=== PATIENT | female | born 1960 | race Caucasian/White ===

== ENCOUNTER 2018-06-02 08:10 | Emergency (ER) | payer OTHER ==
[~2018-06-02] VITALS: Ht 154.9 cm; Wt 63.5 kg
[~2018-06-02 08:10] MED LIST: BUPR100T13 PO; GABA800T2 PO; GEMF600T4 PO; HYDR1TAB GT; METF-440 PO; PARO40TA PO; SIMV20TA6 PO; TRAM50TA PO
--- NOTE | 2018-06-02 08:28 | NUR ---
58 Y/O FEMALE PLACED IN BED 12 C/O COUGH AND CONGESTION. HISTORY OF ASTHMA AND DIABETES.
[2018-06-02] MEDS ORDERED: IPRATROPIUM NEB FS 0.5 MG/2.5 ML AMPUL.NEB ONE (08:36)
[2018-06-02] MEDS ORDERED: ALBUTEROL FS 2.5 MG/3 ML VIAL.NEB ONE ×2 (08:36→09:54)
[2018-06-02] MEDS ORDERED: predniSONE 20 MG TABLET ONE ×2 (08:44→08:52)
--- NOTE | 2018-06-02 08:48 | NUR ---
BREATHING TREATMENT STARTED. PO PREDNISONE GIVEN.
[2018-06-02] MEDS ORDERED: IPRATROPIUM NEB FS 0.5 MG/2.5 ML AMPUL.NEB NEB ONE (09:00)
[2018-06-02] MEDS ORDERED: predniSONE 20 MG TABLET PO ONE (09:00)
[2018-06-02] MEDS ORDERED: ALBUTEROL FS 2.5 MG/3 ML VIAL.NEB NEB ONE (09:00)
[2018-06-02] MEDS ORDERED: IV NS 0.9% 1,000 ML BAG IV ONE (09:30)
--- NOTE | 2018-06-02 09:33 | NUR ---
22 IV H/L PLACED IN LEFT FOREARM. IVF RUNNING.
[2018-06-02] MEDS ORDERED: ALBUTEROL FS 2.5 MG/0.5 ML VIAL.NEB NEB ONE (10:00)
--- NOTE | 2018-06-02 10:05 | NUR ---
EKG AND CHEST X-RAY DONE
--- NOTE | 2018-06-02 10:05 | NUR ---
SECOND BREATHING TREATMENT.
--- NOTE | 2018-06-02 10:28 | NUR ---
AFTER LAST BREATHING TREATMENT, HEART RATE 137. AWARE.
--- NOTE | 2018-06-02 10:43 | NUR ---
LOOKING AT POSSIBLE ADMISSION OF PT. LUNG SOUNDS IMPROVING. PT MOVING MORE AIR.
[2018-06-02 13:00] VITALS: BP 147/70
--- NOTE | 2018-06-02 13:01 | NUR ---
PT RESTING COMFORTABLY. HEART RATE DECREASING.
--- NOTE | 2018-06-02 14:36 | NUR ---
ASTHMA MODERATED. ACI GIVEN WITH RX. DISCHARGED HOME TO FOLLOW UP WITH PMD.
== END 2018-06-02 14:38 | disposition home or self-care (01) ==
LOC: ER 08:14
DX: J45.901 Unspecified asthma with (acute) exacerbation (principal); E11.42 Type 2 diabetes mellitus with diabetic polyneuropathy; I10 Essential (primary) hypertension; J42 Unspecified chronic bronchitis; F32.9 Major depressive disorder, single episode, unspecified; Z87.442 Personal history of urinary calculi; Z86.718 Personal history of other venous thrombosis and embolism; Z98.890 Other specified postprocedural states
CPT/HCPCS: 71045; 93005; 94640 ×2; 99285; A4606; J7512; Z7610

== ENCOUNTER 2019-01-18 09:03 | Emergency (ER) | payer OTHER ==
[~2019-01-18] VITALS: Ht 157.5 cm; Wt 77.1 kg
[~2019-01-18 09:03] MED LIST changes: +GABA800T11 PO; -GABA800T2 PO; -GEMF600T4 PO; +GEMF600T5 PO
--- NOTE | 2019-01-18 09:03 | NUR ---
BIB SELF FOR C/O LEFT ANKLE INJURY YESTERDAY. PT STATED HAVING BALANCE ISSUES. TO ER BED 12, HOOKED TO MONITOR, CHANGED TO GOWN, PROVIDED W WARM BLANKET, AWAITING MD GREEN.
--- NOTE | 2019-01-18 09:12 | NUR ---
DR [employer] AT BEDSIDE
--- NOTE | 2019-01-18 09:17 | NUR ---
DR [employer] AT BEDSIDE
--- NOTE | 2019-01-18 09:26 | NUR ---
[employer] AT BEDSIDE
--- NOTE | 2019-01-18 10:25 | NUR ---
Patient discharged to home in stable condition. Written and verbal after care instructions given. Patient verbalizes understanding of instruction.
[2019-01-18 10:26] VITALS: BP 142/71
== END 2019-01-18 10:26 | disposition home or self-care (01) ==
LOC: ER 09:07
DX: S90.32XA Contusion of left foot, initial encounter (principal); I10 Essential (primary) hypertension; J44.9 Chronic obstructive pulmonary disease, unspecified; E11.9 Type 2 diabetes mellitus without complications; F32.9 Major depressive disorder, single episode, unspecified; Z87.442 Personal history of urinary calculi; Z98.890 Other specified postprocedural states; X58.XXXA Exposure to other specified factors, initial encounter; Y93.89 Activity, other specified; Y92.89 Other specified places as the place of occurrence of the external cause; Y99.8 Other external cause status
CPT/HCPCS: 73610-TC; 73630-TC